=== PATIENT | female | born 1985 | race Caucasian/White ===

== ENCOUNTER 2016-06-06 13:45 | Inpatient (IN) | payer OTHER ==
[~2016-06-06] VITALS: Ht 165.1 cm; Wt 85.3 kg
[2016-06-06] MEDS ORDERED: RINGERS SOLUTION,LACTATED 1,000 ML IV PRN (14:33)
[2016-06-06] MEDS ORDERED: CITRIC ACID/SODIUM CITRATE 30 ML SOLUTION UDCUP PO PRN (14:45)
[2016-06-06] MEDS ORDERED: METOCLOPRAMIDE HCL 5 MG/ML 2 ML VIAL IVP PRN (14:45)
[2016-06-06] MEDS ORDERED: DINOPROSTONE 10 MG VAGINAL SUPPOSITORY VG ONE (15:15)
[2016-06-06 15:18] LABS: BASOPHILS % (AUTO) 0.3 % (0.0-2.0); EOSINOPHILS % (AUTO) 0.6 % (1.0-6.0); HEMATOCRIT 30.3 % (36-46); HEMOGLOBIN 9.5 g/dL (12.0-16.0); LYMPHOCYTES # (AUTO) 1.7 K/uL (1.0-4.8); LYMPHOCYTES % (AUTO) 15.7 % (22.0-44.0); MEAN CORPUSCULAR HEMOGLOBIN 23.8 pg (26.0-34.0); MEAN CORPUSCULAR HGB CONC 31.3 G/dL (31.0-37.0); MEAN CORPUSCULAR VOLUME 76 fL (80-100); MONOCYTES # (AUTO) 0.9 K/uL (0.1-1.0); MONOCYTES % (AUTO) 8.3 % (2.0-9.0); NEUTROPHILS # (AUTO) 8.2 K/uL (1.8-7.7); NEUTROPHILS % (AUTO) 75.1 % (40.0-70.0); RED BLOOD CELL COUNT(AUTO) 3.99 MIL/uL (4.00-5.20); RED CELL DISTRIBUTION WIDTH 16.6 % (11.5-14.5); WHITE BLOOD COUNT (AUTO) 10.9 K/uL (4.5-11.0)
[2016-06-06] MEDS ORDERED: PREN1TAB80 PO (15:31)
[2016-06-06 15:39] VITALS: BP 107/63
[2016-06-06 15:43] LABS: RBC MORPHOLOGY COMMENT ABNORMAL RBC MORPH
[2016-06-06] MEDS: RINGERS SOLUTION,LACTATED 1,000 ML IV SCH ×2 (15:44→19:40)
[2016-06-06] MEDS: OXYGEN THERAPY IH SCH (20:00)
[2016-06-07] MEDS: RINGERS SOLUTION,LACTATED 1,000 ML IV SCH ×3 (03:58→17:56)
[2016-06-07] MEDS: MISOPROSTOL 25 MCG TABLET VG SCH ×2 (04:49→07:46)
[2016-06-07] MEDS ORDERED: OXYTOCIN 30 UNITS/LACT RINGERS 500 ML IV PRN (13:34)
[2016-06-07] MEDS: FentaNYL CITRATE-PF 100 MCG/2 ML VIAL IVP PRN ×4 (17:56→21:35)
[2016-06-07] MEDS: OXYGEN THERAPY IH SCH (19:19)
[2016-06-07] MEDS ORDERED: FentaNYL/BUPIV 0.125%/NS/PF 200 ML ED ONE (21:51)
[2016-06-07] MEDS ORDERED: BUPIVACAINE HCL/PF 0.25% 30 ML VIAL ONE (21:54)
[2016-06-07] MEDS ORDERED: FentaNYL/BUPIV 0.125%/NS/PF 200 ML ED PRN (22:27)
[2016-06-07] MEDS ORDERED: ONDANSETRON HCL 4 MG/2 ML VIAL IVP PRN (22:30)
[2016-06-07] MEDS ORDERED: DiphenhydrAMINE HCL 50 MG/ML VIAL IVP PRN (22:30)
[2016-06-08] MEDS: RINGERS SOLUTION,LACTATED 1,000 ML IV SCH ×3 (03:59→15:19)
[2016-06-08] MEDS: OXYGEN THERAPY IH SCH (08:00)
[2016-06-08] MEDS ORDERED: BUPIVACAINE HCL 0.125%/NS/PF 100 ML ED ONE ×2 (08:46→13:31)
[2016-06-08] MEDS ORDERED: CeFAZolin 2 GM/DEXTROSE 50 ML IV ONE (12:56)
[2016-06-08] MEDS ORDERED: CeFAZolin 2 GM/DEXTROSE 50 ML IV SCH (13:00)
[2016-06-08] MEDS ORDERED: GENTAMICIN SULFATE 160 MG in DEXTROSE 5%-WATER 50 ML IV ONE ×2 (15:15→15:30)
[2016-06-08] MEDS ORDERED: GENTAMICIN 80 MG/NACL ISO-OSM 100 ML IV ONE (15:16)
[2016-06-08] MEDS ORDERED: METHYLERGONOVINE MALEATE 0.2 MG/ML VIAL IM PRN (15:30)
[2016-06-08] MEDS ORDERED: ACETAMINOPHEN/CODEINE 300-30 MG TABLET PO PRN ×2 (15:45)
[2016-06-08] MEDS ORDERED: GLYCERIN/WITCH HAZEL LEAF 40 PADS JAR TP PRN (15:45)
[2016-06-08] MEDS ORDERED: BENZOCAINE 20%/MENTHOL 56 GM SPRAY CANISTER TP PRN (15:45)
[2016-06-08] MEDS ORDERED: LANOLIN 7 GM OINTMENT TP PRN (15:45)
[2016-06-08] MEDS: IBUPROFEN 800 MG TABLET PO SCH (17:29)
[2016-06-08] MEDS ORDERED: SENNA/DOCUSATE SODIUM 187-50 MG TABLET PO ONE (17:30)
[2016-06-08] MEDS ORDERED: MAGNESIUM HYDROXIDE SUSPENSION 30 ML UDCUP PO SCH (21:00)
[2016-06-09] MEDS: IBUPROFEN 800 MG TABLET PO SCH ×2 (00:16→06:01)
[2016-06-09 06:07] LABS: BASOPHILS % (AUTO) 0.3 % (0.0-2.0); EOSINOPHILS % (AUTO) 0.3 % (1.0-6.0); HEMATOCRIT 29.1 % (36-46); LYMPHOCYTES # (AUTO) 2.5 K/uL (1.0-4.8); LYMPHOCYTES % (AUTO) 9.5 % (22.0-44.0); MEAN CORPUSCULAR HEMOGLOBIN 23.5 pg (26.0-34.0); MEAN CORPUSCULAR HGB CONC 30.9 G/dL (31.0-37.0); MEAN CORPUSCULAR VOLUME 76 fL (80-100); MONOCYTES # (AUTO) 2.1 K/uL (0.1-1.0); MONOCYTES % (AUTO) 7.8 % (2.0-9.0); NEUTROPHILS # (AUTO) 21.5 K/uL (1.8-7.7); NEUTROPHILS % (AUTO) 82.1 % (40.0-70.0); RED BLOOD CELL COUNT(AUTO) 3.82 MIL/uL (4.00-5.20); RED CELL DISTRIBUTION WIDTH 16.5 % (11.5-14.5); WHITE BLOOD COUNT (AUTO) 26.2 K/uL (4.5-11.0)
[2016-06-09] MEDS ORDERED: SENNA/DOCUSATE SODIUM 187-50 MG TABLET PO SCH (09:00)
[2016-06-09] MEDS ORDERED: IBUP-2070 PO (13:27)
[2016-06-09] MEDS ORDERED: FERR-89 PO (13:28)
== END 2016-06-09 14:50 | disposition home or self-care (01) | DRG 775 ==
LOC: 4S 13:45 → OBSVTOIN 13:45
PROVIDERS: ADMIT Obstetrics & Gynecology; ATTEND Obstetrics & Gynecology
PROC: 10D07Z6 Extraction of Products of Conception, Vacuum, Via Natural or Artificial Opening (ICD-10-PCS; principal; 2016-06-06)
PROC: 0DQR0ZZ Repair Anal Sphincter, Open Approach (ICD-10-PCS; 2016-06-06)
PROC: 0W8NXZZ Division of Female Perineum, External Approach (ICD-10-PCS; 2016-06-06)
PROC: 3E0S3CZ (ICD-10-PCS; 2016-06-06)
PROC: 00HU33Z Insertion of Infusion Device into Spinal Canal, Percutaneous Approach (ICD-10-PCS; 2016-06-06)
PROC: 3E0P7GC Introduction of Other Therapeutic Substance into Female Reproductive, Via Natural or Artificial Opening (ICD-10-PCS; 2016-06-06)
DX: O41.03X0 Oligohydramnios, third trimester, not applicable or unspecified (principal); O70.20 Third degree perineal laceration during delivery, unspecified; O75.81 Maternal exhaustion complicating labor and delivery; O66.5 Attempted application of vacuum extractor and forceps; Z3A.40 40 weeks gestation of pregnancy; Z37.0 Single live birth
CPT/HCPCS: 86850; 86900; 86901; J0690; J1580; J2210; J2590; J2765; J3010; J3490; J7060; J7120